=== PATIENT | female | born 1960 | race Caucasian/White ===

== ENCOUNTER 2018-03-11 16:19 | Emergency (ER) | payer OTHER ==
[2018-03-11 17:15] LABS: URINE BLOOD (Dip) POC Trace-intact (NEGATIVE); URINE GLUCOSE (Dip) POC Negative (NEGATIVE); URINE KETONES (Dip) POC Negative (NEGATIVE); URINE LEUKOCYTE EST (Dip) POC Negative (NEGATIVE); URINE NITRITE (Dip) POC Negative (NEGATIVE); URINE TOTAL PROTEIN POC Negative (NEGATIVE)
[2018-03-11 17:15] LABS: URINE PH (Dip) POC 5.5 (5.0-8.5)
[2018-03-11] MEDS: KETOROLAC 30 MG INJ IM (17:38)
== END 2018-03-11 18:31 | disposition home or self-care (01) ==
LOC: FTE 16:19
DX: M54.5 Low back pain (principal); I10 Essential (primary) hypertension; E11.9 Type 2 diabetes mellitus without complications
CPT/HCPCS: 81003; 96372; 99284-25

== ENCOUNTER 2018-04-09 12:17 | Emergency (ER) | payer OTHER | END 2018-04-09 12:44 | disposition home or self-care (01) | LOC: E/R 12:17 | DX: H10.13 Acute atopic conjunctivitis, bilateral (principal); I10 Essential (primary) hypertension; E11.9 Type 2 diabetes mellitus without complications | CPT/HCPCS: 99283 ==